=== PATIENT | female | born 1990 | race Caucasian/White ===

== ENCOUNTER 2024-10-30 18:54 | Inpatient (IN) | payer OTHER, SELFPAY ==
[2024-10-30 19:39] VITALS: BMI 35.0
[2024-10-30] MEDS: LR 1000 IV (20:00)
[2024-10-30 20:18] LABS: % Basophils 0.4 % (0-2); % Eosinophils 1.1 % (0-6); % Immature Granulocytes 0.6 % (0-0.5); % Neutrophils 69.9 % (42.2-75.2); Absolute Basophils 0.1 10^3/uL (0-0.2); Absolute Eosinophils 0.1 10^3/uL (0-0.7); Absolute Immature Granulocytes 0.1 10^3/uL (0-0.05); Absolute Lymphocytes 2.7 10^3/uL (1.2-3.4); Absolute Monocytes 0.7 10^3/uL (0.1-0.6); Absolute Neutrophils 8.6 10^3/uL (1.4-6.5); Hematocrit 39.8 % (37.0-47.0); Hemoglobin 13.7 g/dL (12.0-16.0); Mean Corp Hgb Conc. 34.4 g/dL (33.0-37.0); Mean Corpuscular Hgb 32.2 pg (27.0-31.0); Mean Corpuscular Volume 93.4 fL (81.0-99.0); Mean Platelet Volume 11.5 fL (7.4-10.4); Nucleated Red Blood Cells % 0 %; Platelet Count 228 10^3/uL (130-400); Red Blood Cell Count 4.26 10^6/uL (4.20-5.40); Red Cell Dist. Width 12.9 % (11.5-14.5); White Blood Cell Count 12.3 10^3/uL (4.8-10.8)
[2024-10-30] MEDS: PITOCIN 30 UNITS/NSS 500 ML IV (20:27)
[2024-10-30 21:58] VITALS: BP 126/84
[2024-10-30] MEDS: STADOL 1 MG IV (23:53)
[2024-10-31] VITALS (16 sets, daily range): BP systolic 89–122; BP diastolic 48–80; BMI 34.2
[2024-10-31] MEDS: FENTANYL/BUPIVACAINE 100 EPIDURAL ×2 (01:27→09:19)
[2024-10-31] MEDS: SUBLIMAZE 100 MCG EPIDURAL (01:27)
[2024-10-31] MEDS: LR 1000 IV (01:50)
[2024-10-31] MEDS: BICITRA 30 ML PO (13:00)
[2024-10-31] MEDS: ANCEF 10 IV (13:15)
[2024-10-31] MEDS: ZITHROMAX INFUSION 250 IV (14:00)
[2024-10-31] MEDS: TYLENOL 1000 MG PO (14:18)
[2024-10-31 15:20] LABS: Cord VBG B.E. - POC -3.7 mmol/L; Cord VBG HCO3 - POC 21 mmol/L; Cord VBG pCO2 - POC 36 mmHg; Cord VBG pH - POC 7.37; Cord VBG pO2 - POC < 40 mmHg
[2024-10-31 15:40] LABS: Cord ABG B.E. - POC -6.1 mmol/L; Cord ABG HCO3 - POC 23 mmol/L; Cord ABG pCO2 - POC 57 mmHg; Cord ABG pH - POC 7.21; Cord ABG pO2 - POC < 40 mmHg
[2024-10-31] MEDS: METHERGINE INJECTION 0.2 MG IM ×2 (16:09→20:27)
[2024-10-31] MEDS: TRANEXAMIC ACID 100 IV (16:25)
[2024-10-31 16:52] LABS: % Basophils 0.2 % (0-2); % Immature Granulocytes 0.7 % (0-0.5); % Lymphocytes 3.6 % (20.5-51.1); % Monocytes 4.2 % (1.7-9.3); % Neutrophils 91.3 % (42.2-75.2); Absolute Basophils 0.1 10^3/uL (0-0.2); Absolute Immature Granulocytes 0.2 10^3/uL (0-0.05); Absolute Lymphocytes 0.8 10^3/uL (1.2-3.4); Absolute Monocytes 0.9 10^3/uL (0.1-0.6); Absolute Neutrophils 18.9 10^3/uL (1.4-6.5); Hematocrit 24.4 % (37.0-47.0); Hemoglobin 8.6 g/dL (12.0-16.0); Mean Corp Hgb Conc. 35.2 g/dL (33.0-37.0); Mean Corpuscular Hgb 33.1 pg (27.0-31.0); Mean Corpuscular Volume 93.8 fL (81.0-99.0); Mean Platelet Volume 11.2 fL (7.4-10.4); Nucleated Red Blood Cells % 0 %; Platelet Count 205 10^3/uL (130-400); Red Cell Dist. Width 13.1 % (11.5-14.5); White Blood Cell Count 20.7 10^3/uL (4.8-10.8)
[2024-10-31] MEDS: MORPHINE SULFATE 4 MG IV (16:58)
[2024-10-31 17:02] LABS: Fibrinogen 379 MG/DL (199-459); INR 1.04; PT 13.9 Sec (11.4-14.6)
[2024-10-31 17:03] LABS: APTT 27.8 Sec (23.4-35.0)
[2024-10-31 17:49] LABS: ALT (SGPT) 19 U/L (0-35); AST (SGOT) 30 U/L (14-36); Albumin 2.6 g/dl (3.5-5.0); Alkaline Phosphatase 113 U/L (38-126); Blood Urea Nitrogen 10 mg/dl (7-17); Calcium 7.9 mg/dl (8.4-10.2); Carbon Dioxide 19 mmol/L (22-30); Chloride 103 mmol/L (98-107); Estimated Creatinine Clearance 80 ml/min; Glucose 119 mg/dl (70-99); Potassium 3.9 mmol/L (3.5-5.1); Sodium 131 mmol/L (135-145); Total Bilirubin 0.5 mg/dl (0.2-1.3); Total Protein 4.8 g/dl (6.3-8.2); eGFR > 60.00
[2024-10-31] MEDS: MORPHINE SULFATE 2 MG IV (19:50)
[2024-10-31 20:47] LABS: % Basophils 0.2 % (0-2); % Immature Granulocytes 0.5 % (0-0.5); % Lymphocytes 4.5 % (20.5-51.1); % Monocytes 5.3 % (1.7-9.3); % Neutrophils 89.5 % (42.2-75.2); Absolute Immature Granulocytes 0.1 10^3/uL (0-0.05); Absolute Lymphocytes 0.9 10^3/uL (1.2-3.4); Absolute Monocytes 1.1 10^3/uL (0.1-0.6); Absolute Neutrophils 17.8 10^3/uL (1.4-6.5); Hematocrit 27.3 % (37.0-47.0); Hemoglobin 9.2 g/dL (12.0-16.0); Mean Corp Hgb Conc. 33.7 g/dL (33.0-37.0); Mean Corpuscular Hgb 30.7 pg (27.0-31.0); Mean Platelet Volume 10.7 fL (7.4-10.4); Nucleated Red Blood Cells % 0 %; Platelet Count 189 10^3/uL (130-400); Red Cell Dist. Width 14.4 % (11.5-14.5); White Blood Cell Count 19.9 10^3/uL (4.8-10.8)
[2024-10-31 20:59] LABS: Fibrinogen 336 MG/DL (199-459); INR 1.09; PT 14.4 Sec (11.4-14.6)
[2024-10-31 21:01] LABS: ALT (SGPT) 19 U/L (0-35); AST (SGOT) 32 U/L (14-36); Albumin 2.4 g/dl (3.5-5.0); Alkaline Phosphatase 94 U/L (38-126); Blood Urea Nitrogen 11 mg/dl (7-17); Calcium 8.1 mg/dl (8.4-10.2); Carbon Dioxide 18 mmol/L (22-30); Chloride 105 mmol/L (98-107); Estimated Creatinine Clearance 100 ml/min; Glucose 146 mg/dl (70-99); Potassium 4.4 mmol/L (3.5-5.1); Sodium 132 mmol/L (135-145); Total Bilirubin 0.7 mg/dl (0.2-1.3); Total Protein 4.6 g/dl (6.3-8.2); eGFR > 60.00
--- NOTE | 2024-10-31 22:21 | HPS.HSE ---
Family Physician
-
Family Physician: INTERVIEWE UNKNOWN - PT NOT
Chief Complaint
-
Uterine bleeding
History of Present Illness
This is a 34-year-old female who is postop day #1 status post presenting from PACU with recurrent uterine bleeding.
Patient is a G1, P1 without any past medical history. She had a acute today due to decreasing heart rate during contractions/pushing. Initial estimated blood loss was over 1000 cc. She had additional hemorrhage during recovery.
From return on 1320 this afternoon at around 1:30 PM. Hemoglobin was 8.6. She had 1500 mL of clot evacuated and a Deyanira suction placed.
She then had apparent hemostasis only to developed a large amount of 4 hemorrhage true DJD obstruction suddenly with a hypotensive episode. She was taken to the OR, evacuated 200 mL of clot from vagina and Jennifer removed. She was watched for 30
minutes without active bleeding. She was given an tranexamic acid and 2 units of blood. Suture site was evaluated and without bleeding. She had operative ultrasound which was negative for any intra-abdominal fluid.
Currently she is hemodynamically stable with a blood pressure of 104/72 with a pulse of 120 satting 99% on room air.
Medical History
Past Medical History
Past Medical History: Reports None
Past Surgical History: Reports
Social History
Tobacco: Non-smoker
Alcohol: None
Drug: None
Personal:
Living: With Family
Family History
Family History: Not pertinent
Allergies / Home Medications
Allergies reflects when Allergies were last updated in [facility].
Home Medications with original date entered in [facility]
Allergy/Medication List:
Allergies
Allergy/AdvReac Type Severity Reaction Status Date / Time
sulfamethoxazole Allergy Hives Verified 10/30/24 19:09
[From Bactrim]
trimethoprim [From Bactrim] Allergy Hives Verified 10/30/24 19:09
Home Medications
omega 9-mky-bdo-fish oil 60 mg-90 mg-500 mg capsule (Fish Oil) 2 cap PO DAILY 10/30/24
vits no.124-ferrous fum 27 mg iron-folic acid 800 mcg tablet ( Vitamin) 1 tab PO DAILY 10/30/24
Review of Systems
-
History Source: Patient
Constitutional: Reports No Symptoms
EENT: Reports No Symptoms
Respiratory: Reports No Symptoms
Cardiac: Reports No Symptoms
Abdomen/GI: Reports No Symptoms
: Reports No Symptoms
Musculoskeletal: Reports No Symptoms
Skin: Reports No Symptoms
Neurological: Reports No Symptoms
Endocrine: Reports No Symptoms
Hematologic/Lymphatic: Reports No Symptoms
Psych: Reports No Symptoms
Physical Exam
Vital Signs
Vital Signs
Temp Pulse Resp BP Pulse Ox
97.7 F 100 10 98/69 100
10/31/24 21:45 10/31/24 22:15 10/31/24 22:15 10/31/24 22:15 10/31/24 22:15
Physical Exam
General: Well Developed, Well Nourished, Comfortable and Conversant
HEENT: NormoCephalic, Anicteric, Moist mucous membranes and Atraumatic
Respiratory: Clear
Cardiac: S1/S2 and Tachycardia
Breast: Deferred by me
GI: Soft and Non Distended
Rectal: Deferred by Provider
Genito-urinary: Deferred by me and Julian
Musculoskeletal: No Clubbing, No Cyanosis and No Edema
Skin: Warm
Neuro: AO x 3 and Nonfocal/grossly intact
Hematologic/Lymphatic: No Lymphadenopathy
Psych: Calm
Laboratory Results
-
10/31/24 20:41
Laboratory Results
PT 14.4 Sec (11.4-14.6) 10/31/24 20:41
INR 1.09 10/31/24 20:41
APTT 27.8 Sec (23.4-35.0) 10/31/24 16:38
APTT Cancelled 10/31/24 16:38
Total Bilirubin 0.7 mg/dl (0.2-1.3) 10/31/24 20:41
AST 32 U/L (14-36) 10/31/24 20:41
ALT 19 U/L (0-35) 10/31/24 20:41
Alkaline Phosphatase 94 U/L (38-126) 10/31/24 20:41
Data Reviewed
-
Lab Data: Labs Reviewed by me
Old Records: Reviewed
Impression/Plan
-
IMPRESSION:
34 y.o female GIP1 POD 0 s/p with past hemorrhage. No significant family or personal history of bleeding d/o. Extensive blood loss post op (approximately 2 L in total). Some hemodynamic effect but now stabilized after 3 units of
blood and IV fluids. Last Hgb 9.2. WBC 19.9 likely stress related. Na 132 and bicarb 18. She is currently not showing signs of vaginal hemorrhage.
PLAN:
Blood loss with hypotension
- admit to icu for observation
- type and screen and consented for blood
- if further bleeding, give ffp and consult OB
- H&H q 6 hours
- serial examinations
- transfer to [facility] in am if stable.
Post-op and post- orders per OB.
DVT PPX- SCDs
Code status - full code
--- NOTE | 2024-10-31 22:51 | W.IMMPOSTOP ---
Addendum entered and electronically signed by Tootie Matthew DO 10/31/24 23:38:
Bedside ultrasound performed intra-operatively.
Uterine lining thin, no evidence of retained products of conception.
No intra-abdominal collection noted.
No active bleeding from uterus, cervix or vagina for over 30 min.
Original Note:
Surgical Immed Post Op Note
-
Primary Surgeon: Tootie Matthew DO
Assisting Surgeon: Kelly Nuñez MD
Pre-op Diagnosis: hemorrhage
Post-op Diagnosis: same
Procedure Performed: Exam under anesthesia, Manual evacuation of blood clot
Anesthesia Type: general ET, Dr. Bowles
Antibiotics: Ancef 2 grams IV
Specimen / Cultures: none
Estimated Blood Loss: 300ml of evacuated clot, no active surgical bleeding
Julian approx 100ml clear urine
Complications: none
Operative Findings: Uterus enlarged but firm, 300ml clot evacuated manually at start of case.
No cervical or vaginal lacerations. No active bleeding noted for over 30 minutes.
Counts correct6 times 2.
Stable to recovery.
[2024-11-01] VITALS (27 sets, daily range): BP systolic 86–111; BP diastolic 61–76
[2024-11-01] MEDS: LR 1000 IV (00:12)
--- NOTE | 2024-11-01 00:53 | PTCARENOTE ---
Pt received from OR. AAOx3. Neuro intact Pt denies any pain, dizziness, or lightheadedness. HR SR on telemetry. Lungs clear b/l. Julian in place, draining yellow urine. Pt sipping clear liquids. Incision site CDI, no active bleeding. Pt stated she
felt as if she was passing clots again, notified [facility] RN. Mariaa pad with scant pink drainage. Mariaa pad changed. LR infusing as ordered.
[2024-11-01 02:21] LABS: Hematocrit 27.6 % (37.0-47.0); Hemoglobin 9.5 g/dL (12.0-16.0); Mean Corp Hgb Conc. 34.4 g/dL (33.0-37.0); Mean Corpuscular Volume 87.1 fL (81.0-99.0); Mean Platelet Volume 10.8 fL (7.4-10.4); Platelet Count 141 10^3/uL (130-400); Red Blood Cell Count 3.17 10^6/uL (4.20-5.40); White Blood Cell Count 19.6 10^3/uL (4.8-10.8)
[2024-11-01] MEDS: PERCOCET 5/325 1 TABLET PO ×4 (02:23→22:30)
--- NOTE | 2024-11-01 02:25 | PTCARENOTE ---
Assessed pt at 0200. Fundus firm -1 below, no bleeding noted. Dermabond incision CDI. Julian to gravity.
--- NOTE | 2024-11-01 02:30 | PTCARENOTE ---
Labs drawn. Fundus checked by [facility] RN. Pain rating 4-5/10 in R lower abdomen. PRN pain medication - see DEC. Julian continuing to drain yellow urine. No further change in assessment.
[2024-11-01 02:41] LABS: Blood Urea Nitrogen 11 mg/dl (7-17); Carbon Dioxide 20 mmol/L (22-30); Chloride 104 mmol/L (98-107); Estimated Creatinine Clearance 99 ml/min; Glucose 131 mg/dl (70-99); Iron 234 ug/dl (37-170); Potassium 4.4 mmol/L (3.5-5.1); Sodium 130 mmol/L (135-145); eGFR > 60.00
[2024-11-01 02:50] LABS: Percent Saturation 83 % (20-50); Total Iron Binding Capacity 281 ug/dl (265-497)
--- NOTE | 2024-11-01 05:17 | PTCARENOTE ---
Pt states she is sore but has been able to sleep since last fundal check. Fundus firm midline -1. Scant bleeding noted on pad. Julian cath to gravity draining adequate urine. Dermabond incision CDI.
[2024-11-01 06:30] LABS: Hematocrit 24.1 % (37.0-47.0); Hemoglobin 8.4 g/dL (12.0-16.0); Mean Corp Hgb Conc. 34.9 g/dL (33.0-37.0); Mean Corpuscular Volume 86.1 fL (81.0-99.0); Mean Platelet Volume 11.4 fL (7.4-10.4); Platelet Count 150 10^3/uL (130-400); Red Cell Dist. Width 15.3 % (11.5-14.5); White Blood Cell Count 19.6 10^3/uL (4.8-10.8)
--- NOTE | 2024-11-01 07:30 | W.PN.OBG.DWH ---
Today's Communication / Plan
-
anticipate transfer back to today.
bleeding is stable
oob, ambulation
aranda dc today
will defer to consumer insight analyst on timing.
Assessment/Plan
-
A/P:
1. POD#1 s/p P LTCS for nonreassuring FHT
-routine postop care, change to PO analgesia today, OOB, ambulate
2. hemorrhage s/p 3 U PRBCs, methergine x2, TXA x 2 doses yesterday. S/P EUA with manual evac of clot.
No active bleeding post Deyanira removal. Stable overnight. Stable hgb. No coagulopathy.
-anticipate transfer back to today.
Reviewed events of yesterday with pt. She is very appreciative of everyone's efforts to keep her safe.
Subjective Data
-
POD#1 Feeling well. Got some rest.
Denies any dizziness or lightheadedness.
Objective Data
-
Laboratory Results
11/01/24 02:08
Vital Signs
Temp Pulse Resp BP Pulse Ox
98.1 F 80 13 99/65 96
11/01/24 06:08 11/01/24 04:45 11/01/24 04:45 11/01/24 04:30 11/01/24 04:45
VSS Afeb
cor regular
lungs: easy respirations
abd: soft, NT slightly distended abd. Fundus firm NT Inc CDI
ext: no calf pain, foot pumps on
Hgb 8.4/ hct 24 plt 150
--- NOTE | 2024-11-01 07:33 | W.PN.ANS.POP ---
Anesthesia Post Operative
- Anesthesia Post Op Note
Vital Signs Stable-See Nursing Note: Yes (in ICU, stable, not on pressors)
Airway Patent: Yes
Adequate Pain Control: Yes
Change in Mental Status: No
Current Postoperative Nausea & Vomiting: No
Anesthesia Complications: No (verbalizes satisfaction with anesthesia care)
General Anesthetic Recall: No
Unplanned Admission: No (in ICU r/t hemorrhage, stable)
Post Op Hydration Adequate: Yes
--- NOTE | 2024-11-01 08:20 | PTCARENOTE ---
Assumed care of pt at 0715 following shift report. Pt awake and resting quietly in bed. LR infusing at 75ml/hr per order. Julian patent and draining clear yellow urine. Transverse abdominal incision noted- well approximated w/ surgical adhesive. Pt
w/ scant dark red vaginal discharge. Remains on RA w/ POx 98-100%. Physical assessment completed as documented. TT to Dr Mistry w/ update in pt's present condition- diet order received and pt assisted in ordering breakfast. Pt's attentive
at bedside. Call [place] w/in pt reach and safe environment maintained.
--- NOTE | 2024-11-01 08:27 | CON.INTV ---
Consultation
Consultation Request
Date/Time Consultation Requested: N/A
Date/Time Consultation Performed: 11/01/2024 - 819
Requesting Provider: N/A
Performing Provider: Dr. Mercado
Reason for Consultation: post-op
Medical History
-
Chief Complaint: Uterine bleeding
History of Present Illness:
34-year-old female with no significant past medical history who had spontaneous rupture of membranes and had nonreassuring heart rate with persistent category 2 tracing underwent primary low-transverse section on
10/31/2024. Estimated blood loss was 910 cc with no immediate complications, and she was sent to recovery in stable condition. During recovery she had additional hemorrhage, went back to the OR for intraoperative ultrasound and manual evacuation of
clots. Additional EBL was 300 cc of clot manually evacuated with no active bleeding seen. Also given tranexamic acid and 2 units of blood. She was transferred to the ICU for further monitoring.
Pt seen and evaluated this AM. No bleeding seen this AM. Hb 8.2 this AM. IVF stopped. Getting percocet for pain. Getting SCDs. She denies chest pain, TINEO, nausea, vomiting, fevers or chills.
PMHx: Non-contributory
PSHx:
Past Medical History
Past Medical History: Other (Above as per HPI)
Past Surgical History: Other (Above as per HPI)
Social History
Tobacco: Non-smoker
Alcohol: None
Drug: None
Personal:
Living: With Family
Family History
Family History: Reviewed & Not Pertinent
Allergies / Home Medications
Allergies
Allergy/AdvReac Type Severity Reaction Status Date / Time
sulfamethoxazole Allergy Hives Verified 10/30/24 19:09
[From Bactrim]
trimethoprim [From Bactrim] Allergy Hives Verified 10/30/24 19:09
Home Medications
�Medication �Instructions �Recorded �Confirmed �Last Taken �Type
omega 0-dwl-vzk-fish oil 60 mg-90 2 cap PO DAILY 10/30/24 10/30/24 10/29/24 09:00 History
mg-500 mg capsule (Fish Oil)
vits no.124-ferrous fum 1 tab PO DAILY 10/30/24 10/30/24 10/29/24 09:00 History
27 mg iron-folic acid 800 mcg
tablet ( Vitamin)
Review of Systems
-
History Source: Patient
All other systems: Negative unless noted
Vitals / Labs / Diagnostic Testing
Vital Signs
Temp Pulse Resp BP Pulse Ox
97.7 F 80 13 99/65 96
11/01/24 07:35 11/01/24 04:45 11/01/24 04:45 11/01/24 04:30 11/01/24 04:45
Lab Data
11/01/24 02:08
Laboratory Results
10/31/24 10/31/24 10/31/24
16:38 16:38 16:38
PT 13.9 Cancelled
INR 1.04 Cancelled
APTT 27.8
10/31/24 10/31/24
16:38 20:41
PT 14.4
INR 1.09
APTT Cancelled
Microbiology
10/30/24 22:22 Nose MRSA Screen - Final
No Methicillin Resistant Staphylococcus aureus isolated.
Diagnostic Testing:
Physical Exam
-
HEENT: Normocephalic and Anicteric
Cardiovascular: S1/S2 and Peripheral Edema (negative)
Respiratory: Clear, Wheeze (negative), Rales (negative), Rhonchi (negative) and Non-Labored Respirations
GI: Soft, Non Distended, Tender (lower abdomen) and Normal Bowel Sounds
Neurology: AO x 3 and Tremors (negative)
Skin: Warm and Dry
General: Respiratory Distress (negative), Comfortable, Fever (negative) and Chills (negative)
Assessment
-
Assessment: 34-year-old female with no significant past medical history who had spontaneous rupture of membranes and had nonreassuring heart rate with persistent category 2 tracing underwent primary low-transverse
section on 10/31/2024. Estimated blood loss was 910 cc with no immediate complications, and she was sent to recovery in stable condition. During recovery she had additional hemorrhage, went back to the OR for intraoperative ultrasound and manual
evacuation of clots. Additional EBL was 300 cc of clot manually evacuated with no active bleeding seen. Also given tranexamic acid and 2 units of blood. She was transferred to the ICU for further monitoring.
Chronic conditions HAND HOSE CUTTER: Non-contributory
Impression:
# hemorrhage s/p manual evacuation of blood clot
#Term s/p primary low-transverse section (OR: 10/31/2024)
#Acute anemia due to above
#Hyponatremia
Plan:
- Patient is doing well since her manual blood clot evacuation yesterday
- She had received 2 units of PRBCs on 10/31 with Hb this morning 8.4.
- Continue to monitor H&H and transfuse as needed to keep Hb >7g/dL; keep plt>50k
- Would hold anticoagulants/antiplatelets until Hb is stable for >48 hours
- Continue SCDs for DVT ppx for now
- Continue to trend sNa with goal 135-145
- Pain control
- Maintain SpO2 >90-94%
- Maintain MAP>65
- Replete electrolytes with K>4, Mg>2
- Maintain euglycemia with goal BG >100 and <180mgdL
- prn nebulized bronchodilators - not currently bronchospastic
- Incentive spirometer encouraged 10x per hour for at least 4 hrs a day
- DVT ppx: SCDs
Patient is stable for downgrade to the WINDOW DECORATOR service. No additional recommendations at this time. Counterintelligence/Humint Specialist/Pulmonary service will now sign off. Please reconsult if there are any additional questions/concerns, or if patient's respiratory
status deteriorates.
Total time spent today was 56 minutes for this encounter. Time includes reviewing laboratory test/imaging results, reviewing pertinent medical records, obtaining and reviewing medical history, performing an appropriate exam, ordering medications,
tests and procedures. Time also includes documentation of this encounter, coordinating patient care and communicating with other healthcare professionals. Total time does not include separately billed tests performed on this date of service.
--- NOTE | 2024-11-01 08:40 | PTCARENOTE ---
Julian catheter d/c'ed as u/o remains greater than ordered parameters for removal. IVF d/c'ed per order.
[2024-11-01] MEDS: PRENATAL PLUS 1 TABLET PO (08:48)
--- NOTE | 2024-11-01 08:50 | W.PN.HOSP.TC ---
Today's Communication/Plan
-
recheck H&H, if stable - transfer to [facility]
Assessment / Plan
Assessment / Plan
34yo F with no significant PMHx transferred from PACU after and subsequent acute hemorrhage with clot evacuation (1500ml). Deyanira later removed and US showed no continued bleedin g and no concern for intraperitoneal bleed for over 30min
observation. Received 3units PRBC and was monitored in ICU. No further bleeding overnight. hemodynamically stable. Serial H&H for monitoring.
A/P:
# acute blood loss anemia
s/p 3U PRBC, Methergine x2, TXA x2 and manual evac of clot
serial H&H and transfuse to keep Hgb >7 or if symptomatic anemia develops
SUPERVISOR SPECIAL EDUCATION follows
no iron deficiency
check B12 and folate, however with recent blood transfusion - most likely will be incorrect. Repeat anemia w/u in 20-30 days with PCP
#Mild hyponatremia
received RL
stop IVF
follow BMP in 24h
#leukocytosis
most likely 2/2
follow CBC
patient asymptomatic
DVT ppx SCDs 2/2 hemorrhage
Full code
I have spent at least 59min reviewing chart, test results, communication with consukltants and direct patient care
Anticipated Discharge: 24 - 48 hours
Subjective/Interval History
-
Date of Service: November 01, 2024
Objective Data
-
Labs:
Laboratory Results
10/31/24 11/01/24 11/01/24
20:41 02:08 06:03
WBC 19.6 H 19.6 H
Hgb 9.5 L 8.4 L
Hct 27.6 L 24.1 L
Plt Count 141 D 150
PT 14.4
INR 1.09
Sodium 132 L 130 L
Potassium 4.4 4.4
Chloride 105 104
Carbon Dioxide 18 L 20 L
BUN 11 11
Creatinine 0.8 0.8
Glucose 146 H 131 H
Calcium 8.1 L 8.0 L
Total Bilirubin 0.7
AST 32
ALT 19
Alkaline Phosphatase 94
11/01/24 11/01/24
08:45 17:00
WBC
Hgb Pending Pending
Hct Pending Pending
Plt Count
PT
INR
Sodium
Potassium
Chloride
Carbon Dioxide
BUN
Creatinine
Glucose
Calcium
Total Bilirubin
AST
ALT
Alkaline Phosphatase
Vital Signs:
Vital Signs
Temp Pulse Resp BP Pulse Ox
98.1 F 80 13 99/65 96
11/01/24 06:08 11/01/24 04:45 11/01/24 04:45 11/01/24 04:30 11/01/24 04:45
I&O
10/31/24 11/01/24 11/02/24
06:59 06:59 06:59
Intake Total 1320 / 1320
Output Total 460 / 460
Balance 860 / 860
Physical Exam
-
General: No Apparent Distress
HEENT: Normocephalic
Respiratory: Clear to Auscultation
GI: Soft, Nontender and Nondistended
Musculoskeletal: No Clubbing, No Cyanosis and No Edema
Neuro: Awake, Alert, Oriented and AO x 3
Psych: Calm
[2024-11-01 08:59] LABS: Hematocrit 24.5 % (37.0-47.0); Hemoglobin 8.2 g/dL (12.0-16.0)
--- NOTE | 2024-11-01 09:40 | PTCARENOTE ---
TT to Dr Mistry w/ results of Hgb= 8.2
--- NOTE | 2024-11-01 10:09 | CM ---
CM following re: discharge planning.
Reviewed pt's chart, met with pt.
Pt is a 34 year old female, admitted with primary dx of acute blood loss anemia.
Pt reports she lives with 2SH, 1 step to enter. 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 Pt is aware she will be transferred to [facility] most likely today.
D/C plan: transfer back to [facility].
CM will follow with discharge plan updates as needed.
[2024-11-01 10:38] LABS: Ferritin 43.5 ng/ml (6.24-137)
--- NOTE | 2024-11-01 10:46 | W.PN.UPDATE ---
Update Note
Progress Note Update
discussed with QUALITY IMPROVEMENT CONSULTANT - patient to be transferred under their servuice. Follow up with H&H and BMP arranged. Test Lab Technician will sign off. Transfer order to [facility] placed. Call us as needed
--- NOTE | 2024-11-01 11:05 | PTCARENOTE ---
Transfer report called to 'Yesy RN' Pt has been resting quietly with abdominal/incisional pain improved since Percocet administration. Pt w/ scant dark red vaginal bleeding- pericare provided and peripad replaced. Incision unchanged. Denies any
lightheadedness. Pt transferred to Rm [id number] via stretcher w/ transport. Pt's in attendance and in possession of pt's personal belongings.
[2024-11-01 11:09] LABS: Folate 10.9 ng/ml (2.76-20); Vitamin B12 328 pg/ml (239-931)
[2024-11-01] MEDS: SENOKOT-S 1 TABLET PO (15:39)
[2024-11-01 16:17] LABS: Syphilis/T. pallidum Ab Reflex Negative (Negative)
[2024-11-01] MEDS: TYLENOL 650 MG PO (17:25)
[2024-11-01] MEDS: TUMS CHEWABLE TABLET 400 MG PO (21:20)
[2024-11-02] MEDS: PERCOCET 5/325 1 TABLET PO (00:13)
[2024-11-02] MEDS: MOTRIN 600 MG PO ×4 (01:08→21:45)
[2024-11-02] MEDS: PERCOCET 5/325 2 TABLET PO (04:35)
--- NOTE | 2024-11-02 04:36 | DOWNTIME ---
There was a [facility] Downtime on 11/02/2024 from 0100 to 11/02/2023 at 0205 . Downtime documentation of patient's care, including medication administrations, has been reconciled in the electronic record per guidelines. Refer to the
patient's paper chart under the miscellaneous tab to see printed paper medication records and downtime forms.
[2024-11-02 04:54] LABS: % Basophils 0.2 % (0-2); % Eosinophils 0.1 % (0-6); % Immature Granulocytes 1.4 % (0-0.5); % Lymphocytes 10.3 % (20.5-51.1); % Monocytes 6.5 % (1.7-9.3); % Neutrophils 81.5 % (42.2-75.2); Absolute Immature Granulocytes 0.3 10^3/uL (0-0.05); Absolute Lymphocytes 1.9 10^3/uL (1.2-3.4); Absolute Monocytes 1.2 10^3/uL (0.1-0.6); Hematocrit 20.1 % (37.0-47.0); Hemoglobin 6.9 g/dL (12.0-16.0); Mean Corp Hgb Conc. 34.3 g/dL (33.0-37.0); Mean Corpuscular Hgb 29.9 pg (27.0-31.0); Nucleated Red Blood Cells % 0 %; Platelet Count 163 10^3/uL (130-400); Red Blood Cell Count 2.31 10^6/uL (4.20-5.40); Red Cell Dist. Width 15.6 % (11.5-14.5); White Blood Cell Count 18.4 10^3/uL (4.8-10.8)
[2024-11-02 05:18] LABS: Blood Urea Nitrogen 15 mg/dl (7-17); Calcium 8.6 mg/dl (8.4-10.2); Carbon Dioxide 27 mmol/L (22-30); Chloride 102 mmol/L (98-107); Estimated Creatinine Clearance 79 ml/min; Glucose 102 mg/dl (70-99); Potassium 4.6 mmol/L (3.5-5.1); Sodium 133 mmol/L (135-145); eGFR > 60.00
[2024-11-02] MEDS: SENOKOT-S 1 TABLET PO (08:35)
[2024-11-02] MEDS: PRENATAL PLUS 1 TABLET PO (08:35)
--- NOTE | 2024-11-02 08:39 | W.PN.HOSP.TC ---
Today's Communication/Plan
-
monitor H&H - patient currently asymptomatic
1 unit PRBC to transfuse
RESIDENTIAL MORTGAGE UNDERWRITER informed
Assessment / Plan
Assessment / Plan
34yo F with no significant PMHx transferred from PACU after and subsequent acute hemorrhage with clot evacuation (1500ml). Deyanira later removed and US showed no continued bleedin g and no concern for intraperitoneal bleed for over 30min
observation. Received 3units PRBC and was monitored in ICU. Since hemodynamically stable - transferred to [facility]. Had one self-limiting episode of bleeding BRB from vagina overnight on 11/02/24, so 1 more unit of PRBC planne.
A/P:
# acute blood loss anemia
s/p 3U PRBC, Methergine x2, TXA x2 and manual evac of clot
serial H&H and transfuse to keep Hgb >7 or if symptomatic anemia develops
BOAT ASSEMBLER follows
no iron deficiency
check B12 and folate, however with recent blood transfusion - most likely will be incorrect. Repeat anemia w/u in 20-30 days with PCP
#Mild hyponatremia
resolving, most likely 2/2 IVF
#leukocytosis
most likely 2/2
follow CBC
patient afebrile
DVT ppx SCDs 2/2 hemorrhage
Full code
I have spent at least 39min reviewing chart, test results, communication with consukltants and direct patient care
Anticipated Discharge: > 48 hours
Subjective/Interval History
-
Date of Service: November 02, 2024
Objective Data
-
Labs:
Laboratory Results
11/02/24 11/02/24
04:28 18:00
WBC 18.4 H
Hgb 6.9 L* Pending
Hct 20.1 L* Pending
Plt Count 163
Sodium 133 L
Potassium 4.6
Chloride 102
Carbon Dioxide 27
BUN 15
Creatinine 1.0
Glucose 102 H
Calcium 8.6
Vital Signs:
Vital Signs
Temp Pulse Resp BP Pulse Ox
97.7 F 93 19 111/71 100
11/01/24 07:35 11/01/24 10:51 11/01/24 10:51 11/01/24 10:51 11/01/24 10:51
I&O
11/01/24 11/02/24 11/03/24
06:59 06:59 06:59
Intake Total 1320 / 1320 240 / 240
Output Total 460 / 460 150 / 150
Balance 860 / 860 90 / 90
Review of Systems
-
History Source: Patient
All other systems: Reviewed and negative
Genitourinary: Reports Vaginal Bleeding
Physical Exam
-
General: Comfortable
HEENT: Normocephalic
Neuro: Awake, Alert, Oriented and AO x 3
Psych: Calm
[2024-11-02 10:43] VITALS: BP 100/63
[2024-11-02 11:00] VITALS: BP 112/64
[2024-11-02 12:57] VITALS: BP 104/70
[2024-11-02] MEDS: TYLENOL 650 MG PO (21:44)
[2024-11-03] VITALS (19 sets, daily range): BP systolic 104–129; BP diastolic 61–75; BMI 33.7
[2024-11-03] MEDS: TYLENOL 650 MG PO (02:24)
[2024-11-03 05:58] LABS: INR 1.06; PT 14.1 Sec (11.4-14.6)
[2024-11-03 05:59] LABS: APTT 27.4 Sec (23.4-35.0); Fibrinogen 258 MG/DL (199-459)
[2024-11-03 05:59] LABS: % Basophils 0.3 % (0-2); % Eosinophils 1.6 % (0-6); % Immature Granulocytes 2.4 % (0-0.5); % Monocytes 5.9 % (1.7-9.3); % Neutrophils 66.8 % (42.2-75.2); Absolute Basophils 0.1 10^3/uL (0-0.2); Absolute Eosinophils 0.3 10^3/uL (0-0.7); Absolute Immature Granulocytes 0.4 10^3/uL (0-0.05); Absolute Lymphocytes 3.8 10^3/uL (1.2-3.4); Absolute Neutrophils 11.1 10^3/uL (1.4-6.5); Hematocrit 15.8 % (37.0-47.0); Hemoglobin 5.4 g/dL (12.0-16.0); Mean Corp Hgb Conc. 34.2 g/dL (33.0-37.0); Mean Corpuscular Hgb 30.5 pg (27.0-31.0); Mean Corpuscular Volume 89.3 fL (81.0-99.0); Mean Platelet Volume 10.2 fL (7.4-10.4); Nucleated Red Blood Cells % 0.2 %; Platelet Count 187 10^3/uL (130-400); Red Blood Cell Count 1.77 10^6/uL (4.20-5.40); Red Cell Dist. Width 14.6 % (11.5-14.5); White Blood Cell Count 16.6 10^3/uL (4.8-10.8)
[2024-11-03 06:07] LABS: ALT (SGPT) 13 U/L (0-35); AST (SGOT) 26 U/L (14-36); Albumin 1.5 g/dl (3.5-5.0); Alkaline Phosphatase 70 U/L (38-126); Blood Urea Nitrogen 14 mg/dl (7-17); Calcium 6.6 mg/dl (8.4-10.2); Carbon Dioxide 21 mmol/L (22-30); Chloride 110 mmol/L (98-107); Estimated Creatinine Clearance 99 ml/min; Glucose 124 mg/dl (70-99); Potassium 3.8 mmol/L (3.5-5.1); Sodium 138 mmol/L (135-145); Total Bilirubin < 0.1 mg/dl (0.2-1.3); Total Protein 3.1 g/dl (6.3-8.2); eGFR > 60.00
[2024-11-03 07:09] LABS: B.E. - POC -2.8 mmol/L; Glucose - POC 128 mg/dl (70-99); HCO3 - POC 22 mmol/L (21-28); Hematocrit - POC 14 % PCV (37-47); Hemodilution- POC Yes; Hemoglobin Calculated - POC 4.6; Ionized Calcium - POC 1.26 mmol/L (1.15-1.33); Lactate - POC 1.97 mmol/L (0.36-0.75); O2 Saturation %Calculated-POC 99.9 % (94-98); PCO2 - POC 38 mmHg (35-48); PO2 - POC 332 mmHg (83-108); Sodium - POC 137 mmol/L (136-145); Specimen Type - POC Arterial; pH - POC 7.38 (7.35-7.45)
[2024-11-03 07:22] LABS: B.E. - POC -2.6 mmol/L; Glucose - POC 126 mg/dl (70-99); HCO3 - POC 21 mmol/L (21-28); Hematocrit - POC 21 % PCV (37-47); Hemodilution- POC Yes; Hemoglobin Calculated - POC 7.2; Ionized Calcium - POC 1.23 mmol/L (1.15-1.33); Lactate - POC 1.37 mmol/L (0.36-0.75); O2 Saturation %Calculated-POC 99.9 % (94-98); PCO2 - POC 32 mmHg (35-48); PO2 - POC 304 mmHg (83-108); Potassium - POC 4.4 mmol/L (3.5-5.1); Sodium - POC 138 mmol/L (136-145); Specimen Type - POC Arterial; pH - POC 7.43 (7.35-7.45)
[2024-11-03] MEDS: DILAUDID 0.5 MG IV (08:04)
[2024-11-03] MEDS: DILAUDID 0.25 MG IV (08:29)
--- NOTE | 2024-11-03 08:30 | W.PN.INTV ---
Today's Communication / Plan
Recommendations
Serial H&H with CBC q6hr
Ancef 1 g q8hr per FRONT DESK RECEPTIONIST
Pain control
Encouraged incentive spirometer use
Transfuse to keep Hb >7 g/dL, plt >50K
SCDs
[place] contact as much as possible for skin�to�skin and breast-feeding (if patient interested)
Continue with ICU level care for this critically ill patient
Assessment
-
Assessment: 34-year-old female with no significant past medical history who had spontaneous rupture of membranes and had nonreassuring heart rate with persistent category 2 tracing underwent primary low-transverse
section on 10/31/2024. Estimated blood loss was 910 cc with no immediate complications, and she was sent to recovery in stable condition. During recovery she had additional hemorrhage, went back to the OR for intraoperative ultrasound and manual
evacuation of clots. Additional EBL was 300 cc of clot manually evacuated with no active bleeding seen. Also given tranexamic acid and 2 units of blood. She was transferred to the ICU for further monitoring where she stabilized and was sent back
to unit. She developed additional hemorrhage on the morning of 11/03/2024, and underwent an ex lap which discovered a cervical laceration s/p repair. She was given additional blood products and transferred to the medical ICU
for further care, and Actuarial Technician service is re-consulted.
Chronic conditions BATH ATTENDANT: Non-contributory
Impression:
# hemorrhage with cervical laceration s/p ex lap with cervical laceration repair (POD #0)
#Acute anemia due to above
# hemorrhage s/p manual evacuation of blood clot (OR: 10/31/2024)
#Term s/p primary low-transverse section (OR: 10/31/2024)
#Hyponatremia � now resolved
Plan:
- Patient was recently in the ICU on 11/01/2024 after having a hemorrhage with manual evacuation of blood clot in the OR on 10/31/2024
- At that time she required 2 units PRBC on 10/31/2024 with Hb rise from 8.6 to 9.5
- She was downgraded back to the unit on 11/01/2024 where she had been managed, but then started to become acutely anemic on 11/02/2024 that persisted on 11/03/2024 despite an additional blood transfusion
- She developed additional hemorrhage on the morning of 11/03/2024, and went to the OR and diagnosed with a cervical laceration during exploratory laparotomy and then had a repair of this lesion. EBL was 650 cc and then she was
transferred to the medical ICU for further care
- She is no longer having any hemorrhage and has received several blood products since earlier this morning
- So far this hospitalization, she has received 7 units PRBCs, and 2 units FFP; she is awaiting 1 unit platelets this morning
- Continue with serial H&H with CBC q6hr and transfuse to keep Hb >7 g/dL, plt count >50k
- Avoid anticoagulants/antiplatelets until Hb is stable for >48-72 hours
- Continue SCDs for DVT ppx for now
- Per the FRONT DESK RECEPTIONIST physician, Dr. Alves, patient will be continued on Ancef 1 g q8hr for now
- Keep MAP >65
- Patient currently on Normosol at 100 cc/h; stopped this after the remaining bag as patient has a diet order that she is tolerating
- If possible, she should see her as often as possible so that she can have [id number] and continue nursing/breast feeding if patient is interested in doing so
- Pain control
- Maintain SpO2 >90-94%
- Replete electrolytes with K>4, Mg>2
- Maintain euglycemia with goal BG >100 and <180mgdL
- prn nebulized bronchodilators - not currently bronchospastic
- Incentive spirometer encouraged 10x per hour for at least 4 hrs a day
- DVT ppx: SCDs
Critical care statement: A total of 38 minutes of critical care time was provided for this patient today. This includes management of unstable vital signs, evaluation of the patient at bedside, reviewing the patient's pertinent medical records
including radiographs, microbiology, laboratory evaluations, and discussion with primary team, consultants, pharmacy, nutrition, physical therapy, case management, charge nurse, critical care nursing, and respiratory therapy.
Subjective Dataa
Subjective Data
Date of Service:
Date of Service: November 03, 2024
Chief Complaint: Actuarial Technician Follow Up
Subjective:
Brought back to the ICU overnight due to vaginal bleeding, s/p ex lap with repair of cervical laceration. EBL was 650 mL, and she was given Ancef 2 g pre-op. She is doing okay when I saw her, currently in no acute distress with heart rate 86, BP
114/64 and saturating 99% on 2L/min. She has some pain with the stitches are but otherwise denies back pain or groin pain. Also denies shortness of breath. Her , Dilip, was at bedside as well as her sister, Angela. All questions were
answered.
Review of Systems
General: Other (Negative unless mentioned above)
Objective Data
Data Reviewed
Vital Signs / I&O / Oxygen:
Vital Signs
Temp Pulse Resp BP Pulse Ox
97.7 F 84 11 106/61 98
11/03/24 07:50 11/03/24 08:45 11/03/24 08:45 11/03/24 08:45 11/03/24 08:45
Intake and Output
11/02/24 11/03/24 11/04/24
06:59 06:59 06:59
Intake Total 240 / 240 245 / 245
Output Total 150 / 150 250 / 250
Balance 90 / 90 245 / 245 -250 / -250
SaO2 98
Nasal Cannula flow liters per 2
minute
Physical Exam
General: Respiratory Distress (negative), Comfortable, Chills (negative) and Sweats (negative)
HEENT: Normocephalic and Anicteric
Cardiovascular: S1-S2 and Peripheral Edema (negative)
Respiratory: Wheeze (negative), Crackles (negative), Rhonchi (negative), Non-Labored Respirations and Stridor (negative)
GI: Soft, Non Distended, Tender (Mildly tender in hypogastrium region) and Normal Bowel Sounds
Neurology: AO x 3 and Tremors (negative)
Skin: Warm, Dry, Cyanosis (negative) and Jaundice (negative)
Labs/Micro/Reports
Laboratory Results
11/03/24 11/03/24
05:12 05:42
PT 14.1 Cancelled
INR 1.06 Cancelled
APTT 27.4 Cancelled
Microbiology
10/30/24 22:22 Nose MRSA Screen - Final
No Methicillin Resistant Staphylococcus aureus isolated.
--- NOTE | 2024-11-03 08:36 | W.IMMPOSTOP ---
Addendum entered and electronically signed by Tootie Matthew DO 11/03/24 23:02:
Date of procedure 11/03/24
Original Note:
Surgical Immed Post Op Note
-
Primary Surgeon: Tootie Matthew DO
Assisting Surgeon: Casper Alves MD
Pre-op Diagnosis: hemorrhage
Post-op Diagnosis: same; cervical laceration
Procedure Performed: Exploratory laparotomy, repair cervical laceration
Anesthesia Type: general ET Dr. Mei
Specimen / Cultures: none
Estimated Blood Loss: 650ml
Ancef 2g IV preop
Replacement: 2 Units from rapid response, 2 U in OR, 2 U FFP
Julian: 250ml clear yellow
Complications: none
Operative Findings: enlarged uterus, firm upon entry. No hemoperitoneum. Uterine incision: no active bleeding from incision.
Opened hysterotomy incision: bright red blood slowly welling up from cervical region. Cervical laceration noted internally toward left anterolateral side,
deep inside cervix but above vagina. Repaired laceration. After repair, no further bleeding noted. Uterus slightly boggy toward end of case but not bleeding. Methergine IM administered into uterus. Examined cervix from vaginal direction after
laparotomy closed. No lacerations in vagina or lower cervix.. No bleeding noted from cervix or vagina, observing for at least 10 min. No bleeding PACU.
Counts correct times 2.
Stable to recovery.
[2024-11-03 09:20] LABS: Hematocrit 24.3 % (37.0-47.0); Hemoglobin 8.2 g/dL (12.0-16.0); Mean Corp Hgb Conc. 33.7 g/dL (33.0-37.0); Mean Corpuscular Hgb 30.3 pg (27.0-31.0); Mean Corpuscular Volume 89.7 fL (81.0-99.0); Mean Platelet Volume 10.5 fL (7.4-10.4); Platelet Count 138 10^3/uL (130-400); Red Blood Cell Count 2.71 10^6/uL (4.20-5.40); Red Cell Dist. Width 14.2 % (11.5-14.5); White Blood Cell Count 19.8 10^3/uL (4.8-10.8)
[2024-11-03] MEDS: PERCOCET 5/325 2 TABLET PO (09:23)
[2024-11-03] MEDS: PRENATAL PLUS PO (09:25)
[2024-11-03 09:32] LABS: Blood Urea Nitrogen 13 mg/dl (7-17); Calcium 7.4 mg/dl (8.4-10.2); Carbon Dioxide 25 mmol/L (22-30); Chloride 107 mmol/L (98-107); Estimated Creatinine Clearance 98 ml/min; Glucose 111 mg/dl (70-99); Potassium 4.4 mmol/L (3.5-5.1); Sodium 135 mmol/L (135-145); eGFR > 60.00
--- NOTE | 2024-11-03 09:45 | SUR.PHASEI ---
pacu addendum -patient post op in pacu control of hemorrhage- arouses to name, oriented to time and place, c/o of abd incisional pain - medicated x2 with dilaudid with some relief. generalized non pitting edema - extremities firm to touch -
echymosis right lower arm from previous IV site, Ext jugular line intact - capped, abd dressing and peripad remain dry during pacu stay, jodee left brachial consistent with cuff BP on right. Dr Matthew and Dr Casper Alves visit in pacu. Labs
drawn from jodee and sent. Discharge to ICCU - bedside hand-off, LDRP notified to escort to ICCU
--- NOTE | 2024-11-03 09:53 | PTCARENOTE ---
Saw pt at 0935 in the ICU Pt's spouse at her bedside Fundus firm at umbilicus No vaginal bleeding noted Instructed the RN taking care of the pt how to perform a fundal check Made RN aware L&D nurses are available to come over whenever needed
Pt reports incisional pain and had just received Percocet per her RN Pt resting quietly Paperwork was given to the online community manager for pt's chart
[2024-11-03 10:33] LABS: INR 1.03; PT 13.8 Sec (11.4-14.6)
--- NOTE | 2024-11-03 11:28 | PTCARENOTE ---
Addendum entered by Tatiana Goff RN 11/03/24 11:42:
Arrived to ICU from PACU at approx 09:30.
Original Note:
Plan rec'd into ICU 3364 from IT SPECIALISTKylie, bedside handoff completed, LDRP RN Genna in room to complete fundus check with this RN. arrived at bedside. Orders reviewed. Pt did have 8/10 abd pain upon transfer into ICU. PRN Percocet
administered per orders. Abd pain remains s/p Percocet, currently rated 6/10, PRN Motrin administered. See MAR. Plan of care discussed in rounds with collection analyst. Pt for 1 unit Platelets, blood bank called and stated they are available. See
flowsheet. Safe environment maintained.
[2024-11-03] MEDS: MOTRIN 600 MG PO (11:50)
[2024-11-03 13:01] LABS: Hematocrit 18.9 % (37.0-47.0); Hemoglobin 6.7 g/dL (12.0-16.0); Mean Corp Hgb Conc. 35.4 g/dL (33.0-37.0); Mean Corpuscular Hgb 30.6 pg (27.0-31.0); Mean Corpuscular Volume 86.3 fL (81.0-99.0); Mean Platelet Volume 10.3 fL (7.4-10.4); Platelet Count 137 10^3/uL (130-400); Red Blood Cell Count 2.19 10^6/uL (4.20-5.40); Red Cell Dist. Width 14.1 % (11.5-14.5); White Blood Cell Count 16.8 10^3/uL (4.8-10.8)
--- NOTE | 2024-11-03 13:17 | PTCARENOTE ---
1 unit platelets transfused, no s/s transfusion reaction. Baby in room with real estate clerk, family at bedside. Pt resting quietly after feeding baby. 12:00 lab results noted, Hgb 6.5, discussed with knife sharpener. 1 additional unit PRBCs ordered.
--- NOTE | 2024-11-03 15:55 | PTCARENOTE ---
PRBCs unit infused. No s/s transfusion reaction. Pt awake and talking with . Pain level 4/10 at rest, pt comfortable. Pt peripad clean and dry.
[2024-11-03] MEDS: ANCEF 5 IV (16:21)
[2024-11-03] MEDS: SENOKOT-S 1 TABLET PO (18:04)
[2024-11-03 18:26] LABS: Hematocrit 19.2 % (37.0-47.0); Hemoglobin 6.7 g/dL (12.0-16.0); Mean Corp Hgb Conc. 34.9 g/dL (33.0-37.0); Mean Corpuscular Volume 86.1 fL (81.0-99.0); Mean Platelet Volume 10.2 fL (7.4-10.4); Platelet Count 142 10^3/uL (130-400); Red Blood Cell Count 2.23 10^6/uL (4.20-5.40); Red Cell Dist. Width 14.5 % (11.5-14.5); White Blood Cell Count 14.5 10^3/uL (4.8-10.8)
--- NOTE | 2024-11-03 18:48 | PTCARENOTE ---
18:00 lab work resulted, Hgb result 6.7 (no change)...result communicated to Dr. Cook. Orders for another unit PRBCs rec'd. Handoff to night RN completed.
--- NOTE | 2024-11-03 19:02 | W.PN.OBG.DWH ---
Today's Communication / Plan
-
Serial H/H
Monitoring for bleeding
Assessment/Plan
-
Postop s/p PP hemorrhage s/p exp lap with repair cervical laceration
s/p 5 units PRBCs today
No active bleeding
hgb 6.7 stable over 6 hrs. Ok with another Unit PRBC now
serial labs.
Operative findings reviewed with Julissa and . Her initial bleeding episode on delivery day related to uterine atony.
Had been stable last 2 days until this am gushed while . Suspect any small vessel oozing that was present had clotted over and then broke loose this am with uterine contractions while nursing, resulting in hemorrhage. In OR, slow
bleeding noted inside cervix on inner anterior and left surface several centimeters inferior to hysterotomy incision. Bleeding was controlled with suturing. Explained if has any further heavy bleeding episodes, then strongly need to consider
hysterectomy if not stable for [place].
Questions answered. Julissa expressed gratitude for the work of all the teams caring for her.
Subjective Data
-
Pt seen approx 17:45. I had been checking in with L&D Rn and also WELL TESTING OPERATOR today. Could not get up to ICU due to managing acute issues on L&D unit with several patients including 2 csections.
with pt. Julissa awake, alert.
Feels tired but otherwise good.
No dizziness or lightheadedness.
No SOB, no CP
Objective Data
-
Laboratory Results
11/03/24 17:53
11/03/24 08:34
Vital Signs
Temp Pulse Resp BP Pulse Ox
98.4 F 90 12 118/70 99
11/03/24 15:54 11/03/24 18:30 11/03/24 18:30 11/03/24 15:54 11/03/24 18:30
General: appearance: Comfortable appearing, AAO, NAD
VSS afeb
Cor regular rate
Pulm: clear
Abd: soft +bs fundus firm nt
No drainage onto peripad
Ext: SCDs on, no calf pain
hgb 6.7 x2
[2024-11-03] MEDS: PERCOCET 5/325 1 TABLET PO (19:37)
--- NOTE | 2024-11-03 21:44 | PTCARENOTE ---
pt assessed. a&ox4. moves all extremities. endorses (+) sensation x4. PERRLA 3 brisk. c/o TINEO stating she was tearful and felt that was the reason for the TINEO 02/18. pt medicated with percocet as ordered. tolerated well with (+) results. RA, lungs
CTABL. NSR on monitor. A-line in place with good waveform. abd soft and tender to touch. dsg to lower abd CDI. vaughn pad was changed x1 @ change of shift for quarter sized amt bright red blood. made aware by day shift RN. blood tx given as ordered
for Hgb of 6.7. tolerated well. will be drawing repeat Hgb. no s/s of distress assessed. will continue to monitor.
[2024-11-03 23:45] LABS: Hematocrit 23.5 % (37.0-47.0); Hemoglobin 8.5 g/dL (12.0-16.0)
[2024-11-04] MEDS: ANCEF 5 IV ×3 (00:39→16:15)
[2024-11-04] MEDS: PERCOCET 5/325 2 TABLET PO (02:08)
--- NOTE | 2024-11-04 05:06 | PTCARENOTE ---
no change in pt status this shift. pt has been medicated as ordered for pain with (+) results. minimal spotting on peripad noted. no s/s of distress assessed. will continue to monitor.
[2024-11-04] MEDS: PERCOCET 5/325 1 TABLET PO (06:00)
[2024-11-04 06:05] LABS: Hematocrit 21.6 % (37.0-47.0); Hemoglobin 7.7 g/dL (12.0-16.0); Mean Corp Hgb Conc. 35.6 g/dL (33.0-37.0); Mean Corpuscular Hgb 30.6 pg (27.0-31.0); Mean Corpuscular Volume 85.7 fL (81.0-99.0); Mean Platelet Volume 9.9 fL (7.4-10.4); Platelet Count 170 10^3/uL (130-400); Red Blood Cell Count 2.52 10^6/uL (4.20-5.40); Red Cell Dist. Width 14.4 % (11.5-14.5); White Blood Cell Count 12.2 10^3/uL (4.8-10.8)
[2024-11-04 06:28] LABS: Blood Urea Nitrogen 11 mg/dl (7-17); Calcium 7.3 mg/dl (8.4-10.2); Carbon Dioxide 27 mmol/L (22-30); Chloride 105 mmol/L (98-107); Estimated Creatinine Clearance 112 ml/min; Glucose 78 mg/dl (70-99); Sodium 134 mmol/L (135-145); eGFR > 60.00
--- NOTE | 2024-11-04 08:27 | W.PN.INTV ---
Today's Communication / Plan
Recommendations
Serial H&H with CBC q6hr
Ancef 1 g q8hr per PLANNING SUPERVISOR - last day today of Abx
Pain control
Encouraged incentive spirometer use
Transfuse to keep Hb >7 g/dL, plt >50k
SCDs
[place] contact as much as possible for skin�to�skin and breast-feeding (if patient interested)
Continue with ICU level of care however if H&H remains stable today then we will transfer her back to OB floor. Realistically I want to see at least 2�3 CBC blood draws by approximately 6 hours each before I am comfortable downgrading
her. Once she is downgraded back to OB, we will sign off at that time. Thank you for allowing us to be involved in the care of this patient. Please call back with any questions or concerns.
Assessment
-
Assessment: 34-year-old female with no significant past medical history who had spontaneous rupture of membranes and had nonreassuring heart rate with persistent category 2 tracing underwent primary low-transverse
section on 10/31/2024. Estimated blood loss was 910 cc with no immediate complications, and she was sent to recovery in stable condition. During recovery she had additional hemorrhage, went back to the OR for intraoperative ultrasound and manual
evacuation of clots. Additional EBL was 300 cc of clot manually evacuated with no active bleeding seen. Also given tranexamic acid and 2 units of blood. She was transferred to the ICU for further monitoring where she stabilized and was sent back
to unit. She developed additional hemorrhage on the morning of 11/03/2024, and underwent an ex lap which discovered a cervical laceration s/p repair. She was given additional blood products and transferred to the medical ICU
for further care, and Allergist/Md service is re-consulted.
Chronic conditions STREET SPRINKLER: Non-contributory
Impression:
# hemorrhage with cervical laceration s/p ex lap with cervical laceration repair (POD #1)
#Acute anemia due to above
# hemorrhage s/p manual evacuation of blood clot (OR: 10/31/2024)
#Term s/p primary low-transverse section (OR: 10/31/2024)
#Hyponatremia � now resolved
Plan:
- Patient was recently in the ICU on 11/01/2024 after having a hemorrhage with manual evacuation of blood clot in the OR on 10/31/2024
- At that time she required 2 units PRBC on 10/31/2024 with Hb rise from 8.6 to 9.5
- She was downgraded back to the unit on 11/01/2024 where she had been managed, but then started to become acutely anemic on 11/02/2024 that persisted on 11/03/2024 despite an additional blood transfusion
- She developed additional hemorrhage on the morning of 11/03/2024, and went to the OR and diagnosed with a cervical laceration during exploratory laparotomy and then had a repair of this lesion. EBL was 650 cc and then she was
transferred to the medical ICU for further care
- She is no longer having any hemorrhage, and having some spotting as of this AM
- So far this hospitalization, she has received 10 units PRBCs, and 2 units FFP; and 1 U platelets
- Continue with serial H&H with CBC q6hr and transfuse to keep Hb >7 g/dL, plt count >50k
- Avoid anticoagulants/antiplatelets until Hb is stable for >48-72 hours
- Continue SCDs for DVT ppx for now
- Per the PLANNING SUPERVISOR physician, Dr. Alves, patient will be continued on Ancef 1 g q8hr for now - last day today
- Keep MAP >65
- If possible, she should see her as often as possible so that she can have [id number] and continue nursing/breast feeding if patient is interested in doing so
- Pain control
- Maintain SpO2 >90-94%
- Replete electrolytes with K>4, Mg>2
- Maintain euglycemia with goal BG >100 and <180mgdL
- prn nebulized bronchodilators - not currently bronchospastic
- Incentive spirometer encouraged 10x per hour for at least 4 hrs a day
- DVT ppx: SCDs
Continue with ICU level of care however if H&H remains stable today then we will transfer her back to OB floor. Realistically I want to see at least 2�3 CBC blood draws by approximately 6 hours each before I am comfortable downgrading her.
Once she is downgraded back to OB, we will sign off at that time. Thank you for allowing us to be involved in the care of this patient. Please call back with any questions or concerns.
Total time spent today was 57 minutes for this encounter. Time includes reviewing laboratory test/imaging results, reviewing pertinent medical records, obtaining and reviewing medical history, performing an appropriate exam, ordering medications,
tests and procedures. Time also includes documentation of this encounter, coordinating patient care and communicating with other healthcare professionals. Total time does not include separately billed tests performed on this date of service.
Subjective Dataa
Subjective Data
Date of Service:
Date of Service: November 04, 2024
Chief Complaint: Allergist/Md Follow Up
Subjective:
Having some spotting this morning. Heart rate 91, BP 140/92 and saturating 100% on RA. Last blood transfusion yesterday evening at 8:10PM. Hb 7.7 this AM. Pt endorses a headache. Denies chest pain, nausea, vomiting, fevers or chills
Review of Systems
General: Other (Negative unless mentioned above)
Objective Data
Data Reviewed
Vital Signs / I&O / Oxygen:
Vital Signs
Temp Pulse Resp BP Pulse Ox
98.7 F 74 7 112/69 97
11/04/24 07:35 11/04/24 08:00 11/04/24 08:00 11/03/24 21:58 11/04/24 08:00
Intake and Output
11/03/24 11/04/24 11/05/24
06:59 06:59 06:59
Intake Total 245 / 245 2479 / 2479 960 / 960
Output Total 1850 / 1850 700 / 700
Balance 245 / 245 629 / 629 260 / 260
SaO2 97
Nasal Cannula flow liters per 2
minute
Physical Exam
General: Respiratory Distress (negative), Comfortable, Chills (negative) and Sweats (negative)
HEENT: Normocephalic and Anicteric
Cardiovascular: S1-S2 and Peripheral Edema (negative)
Respiratory: Clear, Wheeze (negative), Crackles (negative), Rhonchi (negative), Non-Labored Respirations and Stridor (negative)
GI: Soft, Non Distended, Tender (Mildly tender in hypogastrium region) and Normal Bowel Sounds
Neurology: AO x 3 and Tremors (negative)
Skin: Warm, Dry, Cyanosis (negative) and Jaundice (negative)
Labs/Micro/Reports
Lab Data
11/04/24 05:19
11/04/24 05:19
Laboratory Results
11/03/24
10:00
PT 13.8
INR 1.03
APTT 28.0
Microbiology
10/30/24 22:22 Nose MRSA Screen - Final
No Methicillin Resistant Staphylococcus aureus isolated.
[2024-11-04] MEDS: SENOKOT-S 1 TABLET PO (08:37)
[2024-11-04 09:00] VITALS: BP 111/77
--- NOTE | 2024-11-04 09:04 | W.PN.OBG.DWH ---
Today's Communication / Plan
-
SErial hh
dangle feet, progress to sitting in chair, short ambulation in room either to commode or bathroom as able to tolerate.
postop pain mgmt
diet as acosta
Assessment/Plan
-
POD# 5 S/P Primary LTCS
POD#1 S/P Exploratory laparotomy, hysterotomy with control of bleeding from cervix
s/p transfusion multiple units PRBCs and FFP
-bleeding controlled since surgery yesterday. No active bleeding. Hgb stable.
-serial h/h to confirm stable.
-recommend IV abx for at least 24 hrs postop for prophylaxis due to repeat surgery/ risks endometritis/infection.
-will leave decision to transfer back to unit to aerospace engineer. Would recommend dangling and sitting in chair today.
Would like her to progress to ambulation (can be in room to )to make sure no recurrence of bleeding before transferring back.
Anemia secondary to acute blood loss.
-postop analgesia. Rec holding off on motrin for now secondary to bleeding issues.
-cont postop and care
I am off call today. I did sign out to Dr. Sheffield covering today.
Subjective Data
-
PT seen this am
Feeling well. Denies dizziness or lightheadedness.
No SOB or CP.
Not sensing any bleeding.
Got good night's rest.
Objective Data
-
Laboratory Results
11/04/24 05:19
11/04/24 05:19
Vital Signs
Temp Pulse Resp BP Pulse Ox
98.7 F 74 7 112/69 97
11/04/24 07:35 11/04/24 08:00 11/04/24 08:00 11/03/24 21:58 11/04/24 08:00
VSS afeb
appears NAD, comfortable
abd: soft, NDNT inc cdi
ext: scds on, no calf pain
hgb 7.7 this am
labs reviewed
[2024-11-04] MEDS: PRENATAL PLUS PO (09:09)
--- NOTE | 2024-11-04 11:12 | PTCARENOTE ---
Pt rec'd from night RN at 07:15, VSS, reports pain level tolerable at this time, plan of care discussed. Medications administered, assessment as documented-see flowsheet. Left brachial A line leveled and zeroed, correlated with cuff. Orders per
meat hanger to redraw H+H at noon and 18:[address] ring rolling machine operator Dr. Matthew at bedside to see patient. Minimal spotting on pad overnight and this am. Right EJ removed by VAT RN Min. Pt agreeable with plan to sit on side of bed and progress to chair as
tolerated. Pt with good appetite, no BM so far, +BS +flatus. Safe environment maintained, at bedside.
[2024-11-04] MEDS: TYLENOL 650 MG PO ×2 (11:31→18:16)
[2024-11-04 12:37] LABS: Hematocrit 23.9 % (37.0-47.0); Hemoglobin 8.6 g/dL (12.0-16.0); Mean Corpuscular Hgb 30.8 pg (27.0-31.0); Mean Corpuscular Volume 85.7 fL (81.0-99.0); Mean Platelet Volume 9.3 fL (7.4-10.4); Platelet Count 199 10^3/uL (130-400); Red Blood Cell Count 2.79 10^6/uL (4.20-5.40); Red Cell Dist. Width 14.5 % (11.5-14.5); White Blood Cell Count 11.1 10^3/uL (4.8-10.8)
--- NOTE | 2024-11-04 12:58 | PTCARENOTE ---
Pt reassessed. OOB to chair at 11:30, tolerated well. Noon Hgb up to 8.6. Slight spotting on peripad continues. Right EJ removed by VAT RN.
--- NOTE | 2024-11-04 14:11 | W.PN.OBG.DWH ---
Today's Communication / Plan
-
- continue serial H/H
- routine postop care
- monitor bleeding
- ambulation for short distances as tolerated
- transfer back to per slat grader
Assessment/Plan
-
Patient is a 34yo POD#4 s/p PLTCS for category 2 tracing and EUA with evacuation of clot, POD#1 s/p exploratory laparotomy and hysterotomy with control of bleeding from cervix
- s/p 9u pRBCs, 2u FFP and 1u platelets. Hgb stable this AM at 7.7->8.6 at noon. Continue serial H/H. Transfuse for hgb <7
- continue routine postop care. Pain control as needed
- Ambulation for short distances as tolerated
- Regular diet
- continue IV abx for 24 hours
- Transfer back to per slat grader
Subjective Data
-
Patient with no complaints. She is feeling much better this morning. Denies dizziness or lightheadedness, chest pain or shortness of breath. Said her pad has very minimal bleeding on it. Pain is well controlled. Tolerating a regular diet.
Objective Data
-
General: well appearing, resting in bed comfortably
Abd: soft, nontender, nondistended, incision c/d/i
Ext: nontender, SCDs in place
Laboratory Results
11/04/24 05:19
Vital Signs
Temp Pulse Resp BP Pulse Ox
98.1 F 85 12 111/77 100
11/04/24 11:30 11/04/24 12:00 11/04/24 12:00 11/04/24 09:00 11/04/24 09:00
[2024-11-04] MEDS: TYLENOL 1000 MG PO (14:13)
[2024-11-04] MEDS: MAGNESIUM OXIDE 500 MG PO (14:13)
[2024-11-04] MEDS: VITAMIN B-12 1000 MCG PO (14:14)
--- NOTE | 2024-11-04 14:53 | CM ---
CM following re: discharge planning.
Reviewed pt's chart, met with pt.
Pt is POD# 5 S/P Primary LTCS, and POD#1 S/P Exploratory laparotomy, hysterotomy with control of bleeding from cervix, continue supportive care.
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
D/C plan: home with anticipated no needs.
CM will follow with discharge plan updates as needed.
--- NOTE | 2024-11-04 17:23 | PTCARENOTE ---
Brought Larry to visit with mom from 1530 to 1640. Julissa OSPINA to chair and able to hold Larry. Dad at bedside with Julissa.
[2024-11-04 17:56] LABS: Hematocrit 23.3 % (37.0-47.0); Hemoglobin 8.3 g/dL (12.0-16.0); Mean Corp Hgb Conc. 35.6 g/dL (33.0-37.0); Mean Corpuscular Hgb 30.7 pg (27.0-31.0); Mean Corpuscular Volume 86.3 fL (81.0-99.0); Mean Platelet Volume 9.1 fL (7.4-10.4); Platelet Count 198 10^3/uL (130-400); Red Cell Dist. Width 14.7 % (11.5-14.5); White Blood Cell Count 11.6 10^3/uL (4.8-10.8)
--- NOTE | 2024-11-04 17:59 | PTCARENOTE ---
Pt remains comfortable out in chair. 18:00 labs sent, awaiting result at this time. Peripad with minimal spotting again. Pt with headache from intermittent tearfulness. Feeling much better overall, plan to transfer back to LDRP when dressage instructor
approves.
--- NOTE | 2024-11-04 18:14 | PTCARENOTE ---
Hgb result of 8.3 communicated to Hand Binder Stripper, dispo plan discussed, he stated that he will contact OB and then decide.
--- NOTE | 2024-11-04 20:26 | PTCARENOTE ---
Pt received awake alert and oriented sitting OOB in chair. Assisted back to bed and pt did well. A-line d/c'd. Report given to LDRP. Monitor d/c'd. Pt to be transported to LDRP.
[2024-11-04] MEDS: REGLAN 10 MG PO (22:39)
[2024-11-04] MEDS: BENADRYL 25 MG PO (22:39)
[2024-11-05] MEDS: ANCEF 5 IV ×2 (00:10→08:09)
[2024-11-05] MEDS: TYLENOL 1000 MG PO ×2 (02:04→18:09)
[2024-11-05 06:11] LABS: Hematocrit 22.7 % (37.0-47.0); Hemoglobin 7.9 g/dL (12.0-16.0); Mean Corp Hgb Conc. 34.8 g/dL (33.0-37.0); Mean Corpuscular Hgb 30.5 pg (27.0-31.0); Mean Corpuscular Volume 87.6 fL (81.0-99.0); Mean Platelet Volume 9.3 fL (7.4-10.4); Platelet Count 210 10^3/uL (130-400); Red Blood Cell Count 2.59 10^6/uL (4.20-5.40); Red Cell Dist. Width 14.4 % (11.5-14.5)
[2024-11-05 06:28] LABS: Blood Urea Nitrogen 13 mg/dl (7-17); Calcium 8.1 mg/dl (8.4-10.2); Carbon Dioxide 28 mmol/L (22-30); Chloride 104 mmol/L (98-107); Estimated Creatinine Clearance 112 ml/min; Glucose 82 mg/dl (70-99); Magnesium 1.9 mg/dl (1.6-2.3); Phosphorus 4.8 mg/dl (2.5-4.5); Potassium 4.1 mmol/L (3.5-5.1); Sodium 134 mmol/L (135-145); eGFR > 60.00
[2024-11-05] MEDS: SENOKOT-S 1 TABLET PO (08:08)
[2024-11-05] MEDS: TYLENOL 500 MG PO (08:08)
[2024-11-05] MEDS: PRENATAL PLUS 1 TABLET PO (08:09)
[2024-11-06] MEDS: TYLENOL 1000 MG PO (00:23)
[2024-11-06] MEDS: TYLENOL 650 MG PO (08:14)
[2024-11-06] MEDS: PRENATAL PLUS 1 TABLET PO (08:14)
[2024-11-06] MEDS: SENOKOT-S 1 TABLET PO (08:14)
--- NOTE | 2024-11-06 11:23 | W.DS.TRANS ---
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
-
Discharge Instructions:
Discharge Diagnosis/Procedures 38w6d delivered; SROM, induction of
labor, IUPC insertion, amnioinfusion, persistent
category 2 tracing/repetitive severe
variable decelerations, primary Low transverse
section. hemorrhage, Deyanira
balloon insertion, blood transfusion for anemia
related to blood loss; exploratory laparotomy,
hysterotomy, repair cervical laceration
Diet Regular
Activity No strenuous activity
Driving Restrictions No driving for 2 weeks
Bathing Restrictions OK to Shower
Instructions:
Stand-Alone Forms: LDRP Delivery
Changes to Home Medications: No
Discharge Medications:
DC Medications w/original date entered in [email or web address]
omega 6-bcj-zkh-fish oil 60 mg-90 mg-500 mg capsule (Fish Oil) 2 cap PO DAILY 10/30/24
vits no.124-ferrous fum 27 mg iron-folic acid 800 mcg tablet ( Vitamin) 1 tab PO DAILY 10/30/24
acetaminophen 500 mg tablet (Tylenol Extra Strength) 1,000 mg (2 x 500 mg) PO Q6HPRN PRN mild pain, headache #0 tabs 11/06/24
calcium carbonate (Calcium Antacid) 400 mg (2 x 200 mg calcium (500 mg)) PO Q6HPRN PRN indigestion #0 tabs 11/06/24
ibuprofen 600 mg tablet 600 mg PO Q6HPRN PRN PAIN #40 tabs 11/06/24
polyethylene glycol 3350 17 gram oral powder packet 17 g PO DAILYPRN PRN constipation #0 ea 11/06/24
sennosides 8.6 mg-docusate sodium 50 mg tablet 1 tab PO DAILYPRN PRN constipation #0 tabs 11/06/24
simethicone 80 mg chewable tablet 80 mg PO TIDPRN PRN flatulence #0 tabs 11/06/24
Home Medication Changes
Pending Results: No
Total time spent discharging patient (in min): 30
== END 2024-11-06 11:59 | disposition home or self-care (01) | DRG 786 ==
LOC: LDRP 18:54
PROVIDERS: Internal Medicine; Nurse Practitioner Family; Nurse Practitioner Primary Care; Obstetrics & Gynecology; ADMITTING PHYSICIAN Student in an Organized Health Care Education/Training Program; ATTENDING PHYSICIAN Obstetrics & Gynecology; CONSULT PHYSICIAN Internal Medicine Critical Care Medicine
PROC: 3E033VJ Introduction of Other Hormone into Peripheral Vein, Percutaneous Approach (ICD-10-PCS; 2024-10-30)
PROC: 0W3R7ZZ Control Bleeding in Genitourinary Tract, Via Natural or Artificial Opening (ICD-10-PCS; 2024-10-31)
PROC: 10H07YZ Insertion of Other Device into Products of Conception, Via Natural or Artificial Opening (ICD-10-PCS; 2024-10-31)
PROC: 3E0E7GC Introduction of Other Therapeutic Substance into Products of Conception, Via Natural or Artificial Opening (ICD-10-PCS; 2024-10-31)
PROC: 10D00Z1 Extraction of Products of Conception, Low, Open Approach (ICD-10-PCS; 2024-10-31)
PROC: 30233N1 Transfusion of Nonautologous Red Blood Cells into Peripheral Vein, Percutaneous Approach (ICD-10-PCS; 2024-10-31)
PROC: 0UQC7ZZ Repair Cervix, Via Natural or Artificial Opening (ICD-10-PCS; 2024-11-03)
PROC: 30233K1 Transfusion of Nonautologous Frozen Plasma into Peripheral Vein, Percutaneous Approach (ICD-10-PCS; 2024-11-03)
PROC: 30233R1 Transfusion of Nonautologous Platelets into Peripheral Vein, Percutaneous Approach (ICD-10-PCS; 2024-11-03)
DX: O42.12 Full-term premature rupture of membranes, onset of labor more than 24 hours following rupture (principal); R57.1 Hypovolemic shock; O72.1 Other immediate postpartum hemorrhage; E87.1 Hypo-osmolality and hyponatremia; O71.3 Obstetric laceration of cervix; D62 Acute posthemorrhagic anemia; O76 Abnormality in fetal heart rate and rhythm complicating labor and delivery; Z3A.38 38 weeks gestation of pregnancy; Z37.0 Single live birth; O69.81X0 Labor and delivery complicated by cord around neck, without compression, not applicable or unspecified; O90.81 Anemia of the puerperium; O99.285 Endocrine, nutritional and metabolic diseases complicating the puerperium
CPT/HCPCS: 88307; 76942; 80048; 80053; 82607; 82728; 82746; 83540; 83550; 83735; 84100; 85014; 85018; 85025; 85027; 85384; 85610; 85730; 86780; 86850; 86900; 86901; 86920; 86927; 87070; 93005; J2916; P9016; P9035; P9059